=== PATIENT | male | born 1950 | race Caucasian/White ===

== ENCOUNTER 2018-06-24 08:01 | Observation (INO) ==
[2018-06-24] MEDS ORDERED: Sod Chloride 0.9% Inj 1,000 ML IV.SIG ONE (08:34)
--- NOTE | 2018-06-24 08:40 | ED ---
HPI General Chief complaint: Dizziness Stated complaint: Lower heart rate/dizzy/high BP this am Time Seen by Provider: 06/24/18 08:27 Source: patient Mode of arrival: ambulatory Limitations: no limitations History of Present Illness HPI narrative: 68yo M with PMH of HTN, DM presents to the ED with c/o dizziness and diaphoresis this morning. Said he feels lightheaded and is worst when he gets up. Also noticed low heart rate. Last took amlodipine yesterday morning. Denies any fever, cough, chest pain, sob, n/v, abdominal pain, focal weakness or numbness. Related Data Home Medications Medication Instructions Recorded Confirmed amlodipine 10 mg PO QDRHS 06/24/18 06/24/18 levothyroxine 75 mcg PO QDRHS 06/24/18 06/24/18 metformin 500 mg PO QDRHS 06/24/18 06/24/18 Allergies Allergy/AdvReac Type Severity Reaction Status Date / Time No Known Allergies Allergy Unverified 06/24/18 08:20 Review of Systems ROS: all other systems reviewed are negative [facility] Medical History Medical History Diabetes (Acute) Hypertension (Acute) Hypothyroid (Acute) Social History Social History Substance History: No History of Abuse Second Hand Smoke Exposure: No Smoking Status: Former smoker How Often Do You Have a Drink Containing Alcohol: Never Recent Travel in [facility] within the Last 8 Weeks: No Recent Out of Country Travel within the Last 8 Weeks: No Exam Narrative Exam Narrative: GENERAL: 68yo M in mild distress. SKIN: Focused skin assessment warm/dry. HEAD: Atraumatic. Normocephalic. EYES: Pupils equal and round at 4mm bilaterally. EOMI. ENT: No nasal bleeding or discharge. Mucous membranes pink and moist. NECK: Trachea midline. No JVD. CARDIOVASCULAR: Bradycardic in low 40s. No murmur appreciated. RESPIRATORY: No accessory muscle use. Clear to auscultation. Breath sounds equal bilaterally. GASTROINTESTINAL: Abdomen soft, non-tender, nondistended. MUSCULOSKELETAL: No obvious deformities. No clubbing. No cyanosis. Trace bilateral lower extremity edema. NEUROLOGICAL: Awake and alert. No obvious cranial nerve deficits. Motor grossly within normal limits in all extremities. Sensation equal. Normal speech. PSYCHIATRIC: Appropriate mood and affect; insight and judgment normal. Course Initial Documented Vital Signs Temperature 97.4 F L 06/24/18 08:13 Pulse Rate 42 L 06/24/18 08:13 Respiratory Rate 16 06/24/18 08:13 Blood Pressure 130/66 06/24/18 08:13 Pulse Oximetry 96 06/24/18 08:13 Last Documented Vital Signs Temperature 97.4 F L 06/24/18 08:13 Pulse Rate 44 L 06/24/18 11:23 Respiratory Rate 16 06/24/18 11:23 Blood Pressure 119/66 06/24/18 11:23 Pulse Oximetry 95 06/24/18 11:23 Medical Decision Making MDM Narrative Medical decision making narrative: 68yo M with dizziness and bradycardia this morning. Pt's heart rate is usually in the 50s but today is in the low 40s. EKG shows sinus bradycardia. Labs reviewed, no leukocytosis. H/H normal. Troponin negative. BUN elevated at 24. BUN to creatinine ratio is 2 to 1. US showed no leukocyte. Pt given NS IVF. Pt reevaluated at bedside and is still dizzy when he gets up. Given his bradycardia and dizziness, will observe overnight on telemetry. Discussed with Dr. Duque and accepted to his service. Differential Diagnosis Differential Diagnosis: Symptomatic bradycardia vs. hypoglycemia vs. dehydration vs. ACS vs. arrhythmia Lab Data Result diagrams: 06/24/18 08:49 06/24/18 08:49 Lab Results 06/24/18 06/24/18 06/24/18 Range/Units 08:49 08:49 08:56 CBC w Diff Auto diff final WBC 4.9 (4.0-11.0) th/mm3 RBC 4.61 (4.50-5.90) mil/mm3 Hgb 14.1 (13.0-17.0) gm/dL Hct 42.5 (39.0-51.0) % MCV 92.2 (80.0-100.0) fL MCH 30.6 (27.0-34.0) pg MCHC 33.3 (32.0-36.0) % RDW 13.3 (11.6-17.2) % Plt Count 260 (150-450) th/mm3 MPV 7.0 (7.0-11.0) fL Neut % (Auto) 71.5 H (16.0-70.0) % Lymph % (Auto) 17.6 (9.0-44.0) % [place] % (Auto) 8.1 H (0.0-8.0) % Eos % (Auto) 2.2 (0.0-4.0) % Baso % (Auto) 0.6 (0.0-2.0) % Neut # (Auto) 3.5 (1.8-7.7) th/mm3 Lymph # (Auto) 0.9 L (1.0-4.8) th/mm3 [place] # (Auto) 0.4 (0.0-0.9) th/mm3 Eos # (Auto) 0.1 (0.0-0.4) th/mm3 Baso # (Auto) 0.0 (0.0-0.2) th/mm3 WBC Differential . Differential Comment . Sodium 140 (136-145) meq/L Potassium 3.6 (3.5-5.1) meq/L Chloride 108 H (98-107) meq/L Carbon Dioxide 26.9 (21.0-32.0) meq/L Anion Gap 5 (5-15) meq/L BUN 24 H (7-18) mg/dL Creatinine 0.86 (0.60-1.30) mg/dL Estimated GFR 89 (>89) mL/min POC Glucose 120 H (68-110) mg/dl Random Glucose 126 H (74-106) mg/dL Calcium 8.5 (8.5-10.1) mg/dL Troponin I Less than 0.02 L (0.02-0.05) ng/mL Urine Color (Yellw/Straw) Urine Clarity (Clear) Urine pH (5.0-8.5) Ur Specific [place] (1.002-1.035) Urine Protein (Neg-Trace) mg/dL Urine Glucose (UA) (Negative) mg/dL Urine Ketones (Negative) mg/dL Urine Occult Blood (Negative) Urine Nitrate (Negative) Urine Bilirubin (Negative) Urine Urobilinogen (Less than 2) mg/dL Ur Leukocyte Esterase (Negative) Urine WBC (0-5) /hpf Urine Mucus (Occasional) /lpf Micro UA Comment Urine Culture Comments 06/24/18 Range/Units 10:46 CBC w Diff WBC (4.0-11.0) th/mm3 RBC (4.50-5.90) mil/mm3 Hgb (13.0-17.0) gm/dL Hct (39.0-51.0) % MCV (80.0-100.0) fL MCH (27.0-34.0) pg MCHC (32.0-36.0) % RDW (11.6-17.2) % Plt Count (150-450) th/mm3 MPV (7.0-11.0) fL Neut % (Auto) (16.0-70.0) % Lymph % (Auto) (9.0-44.0) % [place] % (Auto) (0.0-8.0) % Eos % (Auto) (0.0-4.0) % Baso % (Auto) (0.0-2.0) % Neut # (Auto) (1.8-7.7) th/mm3 Lymph # (Auto) (1.0-4.8) th/mm3 [place] # (Auto) (0.0-0.9) th/mm3 Eos # (Auto) (0.0-0.4) th/mm3 Baso # (Auto) (0.0-0.2) th/mm3 WBC Differential Differential Comment Sodium (136-145) meq/L Potassium (3.5-5.1) meq/L Chloride (98-107) meq/L Carbon Dioxide (21.0-32.0) meq/L Anion Gap (5-15) meq/L BUN (7-18) mg/dL Creatinine (0.60-1.30) mg/dL Estimated GFR (>89) mL/min POC Glucose (68-110) mg/dl Random Glucose (74-106) mg/dL Calcium (8.5-10.1) mg/dL Troponin I (0.02-0.05) ng/mL Urine Color Yellow (Yellw/Straw) Urine Clarity Clear (Clear) Urine pH 5.5 (5.0-8.5) Ur Specific [place] Greater/equal 1.030 (1.002-1.035) Urine Protein Trace (Neg-Trace) mg/dL Urine Glucose (UA) Negative (Negative) mg/dL Urine Ketones Trace (Negative) mg/dL Urine Occult Blood Negative (Negative) Urine Nitrate Negative (Negative) Urine Bilirubin Negative (Negative) Urine Urobilinogen 1.0 (Less than 2) mg/dL Ur Leukocyte Esterase Negative (Negative) Urine WBC 0-5 (0-5) /hpf Urine Mucus Moderate H (Occasional) /lpf Micro UA Comment Culture not ind Urine Culture Comments Culture not ind ECG Data EKG Prior to Arrival: No Attestation: I personally reviewed and interpreted this ECG as follows: Interpretation: Sinus bradycardia at 40bpm. LAD. [place] 170ms. Mild ST depression I, aVL. Discharge Plan Discharge Disposition Patient Disposition: 30 Still Patient Discharge Details Diagnosis: Dehydration, Bradycardia Physicians Team ED Provider: Gayatri Wright Primary Care Provider: Rocky Carpenter Rxs /Orders / Referrals /Forms Prescriptions: No Action amlodipine 10 mg PO QDRHS RF: 0 levothyroxine 75 mcg PO QDRHS RF: 0 metformin 500 mg PO QDRHS RF: 0 Discharge Interventions Interventions: Vital Signs Last Done: 06/24/18 11:23 Status ED Status: With Doctor
[2018-06-24 08:56] LABS: Baso % (Auto) 0.6 % (0.0-2.0); Eos # (Auto) 0.1 th/mm3 (0.0-0.4); Eos % (Auto) 2.2 % (0.0-4.0); Hematocrit 42.5 % (39.0-51.0); Hemoglobin 14.1 gm/dL (13.0-17.0); Lymph # (Auto) 0.9 th/mm3 (1.0-4.8); Lymph % (Auto) 17.6 % (9.0-44.0); Mean Corpuscular HGB Conc 33.3 % (32.0-36.0); Mean Corpuscular Hemoglobin 30.6 pg (27.0-34.0); Mean Corpuscular Volume 92.2 fL (80.0-100.0); Mono # (Auto) 0.4 th/mm3 (0.0-0.9); Mono % (Auto) 8.1 % (0.0-8.0); Neut # (Auto) 3.5 th/mm3 (1.8-7.7); Neut % (Auto) 71.5 % (16.0-70.0); Platelet Count 260 th/mm3 (150-450); Red Blood Count 4.61 mil/mm3 (4.50-5.90); Red Cell Distribution Width 13.3 % (11.6-17.2); White Blood Count 4.9 th/mm3 (4.0-11.0)
[2018-06-24 09:06] LABS: Chloride 108 meq/L (98-107); Potassium 3.6 meq/L (3.5-5.1); Sodium 140 meq/L (136-145)
[2018-06-24 09:08] LABS: Calcium 8.5 mg/dL (8.5-10.1)
[2018-06-24 09:09] LABS: Anion Gap 5 meq/L (5-15); Blood Urea Nitrogen 24 mg/dL (7-18); Carbon Dioxide 26.9 meq/L (21.0-32.0); Glucose,Random 126 mg/dL (74-106)
[2018-06-24 09:12] LABS: Glomerular Filtration Rate 89 mL/min (>89)
[2018-06-24 10:49] LABS: Bilirubin,Urine Negative (Negative); Clarity,Urine Clear (Clear); Color,Urine Yellow (Yellw/Straw); Glucose,Urine (UA) Negative (Negative); Leukocyte Esterase,Urine Negative (Negative); Nitrite,Urine Negative (Negative); PH,Urine 5.5 (5.0-8.5); Specific Gravity,Urine Greater/Equal 1.030 (1.002-1.035)
[2018-06-24 10:58] LABS: WBC,Urine 0-5 /hpf (0-5)
[2018-06-24 10:59] LABS: Mucus,Urine Moderate /lpf (Occasional)
[2018-06-24] MEDS ORDERED: Acetaminophen 325 MG Tablet PO PRN (12:45)
[2018-06-24] MEDS: Levothyroxine 75 MCG Tablet PO SCH (13:49)
[2018-06-24] MEDS: amLODIPine 10 MG Tablet PO SCH (13:49)
[2018-06-24] MEDS: Enoxaparin Inj 40 MG/0.4 ML Syringe SQ SCH (13:50)
--- NOTE | 2018-06-24 17:14 | P.HP ---
History of Present Illness Service: [facility] hospitalist Primary Care Physician: Rocky Carpenter Chief Complaint: dizziness with low pulse History of Present Illness: 68-year-old white male with a history of hypertension on amlodipine diabetes on metformin who came to the emergency room today with complaints of dizziness and on a monitor was found to have a low pulse rate and was concerned it was less than 50. Patient states that approximately 1 year ago while at work had a syncopal episode off a ladder, and was admitted to the hospital had full workup including monitor strips and had a event monitor which was unremarkable. Patient also states that last he had dizzy spells associated with some vertigo lasted about a half a day and dissipated on its own. Today patient woke up with dizziness lightheadedness and does have a blood pressure monitor blood pressure monitor read 40 to his baseline heart rate is approximately 55 according to the patient 42 he became concerned and came to [facility] emergency room. In the emergency room his heart rate was in the 50 range will be admitted now for further evaluation telemetry monitoring and consult cardiology patient denies shortness of breath chest pain nausea vomiting when he had the dizzy spell he was off balance balance is now normal. - Diagnosis (1) Dizziness (2) Bradycardia (3) Diabetes (4) Hypertension Review of Systems All other systems reviewed negative except as stated in HPI [facility] - History History Provided By: Patient - Medical History Medical History: Medical History (Last Updated 06/24/18 @ 08:53 by Gabrielle Raza RN) Diabetes Hypertension Hypothyroid - Tobacco History Second Hand Smoke Exposure: No Tobacco Use In Past 30 Days: No Smoking Status: Former smoker Tobacco Type: Cigarettes - Alcohol History How Often Do You Have a Drink Containing Alcohol: Never - Substance Use History Substance History: No History of Abuse - Travel History Recent Travel in the [place] Within the Last 8 Weeks: No Recent Travel Out of the Country Within the Last 8 Weeks: No - Immunization History Tetanus Immunization: Unsure Hx Influenza Vaccine This Season: No Medications and Allergies Active Medications: Active Medications Acetaminophen (Tylenol) 650 mg PO Q4H PRN PRN Reason: Temp > 100.4 Al Hydroxide/Mg Hydroxide (Milk Of Magnesia Liq) 30 ml PO Q12H PRN PRN Reason: Mild Constipation Amlodipine Besylate (Norvasc) 10 mg PO DAILY [facility] Last Admin: 06/24/18 13:49 Dose: 10 mg Enoxaparin Sodium (Lovenox Inj) 40 mg SQ Q24H [facility] Last Admin: 06/24/18 13:50 Dose: 40 mg Levothyroxine Sodium (Synthroid) 75 mcg PO DAILY@0600 [facility] Last Admin: 06/24/18 13:49 Dose: 75 mcg Meclizine HCl (Antivert) 25 mg PO Q8HR [facility] Last Admin: 06/24/18 15:40 Dose: 25 mg Sodium Chloride (Ns Flush) 2 ml IV.FLUSH PRN PRN PRN Reason: FLUSH AFTER USING IV ACCESS Allergies Allergy/AdvReac Type Severity Reaction Status Date / Time No Known Allergies Allergy Unverified 06/24/18 08:20 Home Medications Medication Instructions Recorded Confirmed Type amlodipine 10 mg PO QDRHS 06/24/18 06/24/18 History levothyroxine 75 mcg PO QDRHS 06/24/18 06/24/18 History metformin 500 mg PO QDRHS 06/24/18 06/24/18 History Exam Vital signs: Vital Signs 06/24/18 08:13 06/24/18 08:59 06/24/18 09:00 Temperature 97.4 F L Pulse Rate 42 L 42 L 42 L Respiratory Rate 16 16 Blood Pressure 130/66 115/64 Pulse Oximetry 96 97 06/24/18 09:51 06/24/18 10:43 06/24/18 11:23 Temperature Pulse Rate 43 L 43 L 44 L Respiratory Rate 16 16 16 Blood Pressure 113/74 115/65 119/66 Pulse Oximetry 97 97 95 06/24/18 13:35 06/24/18 14:59 Temperature 96.8 F L 97.2 F L Pulse Rate 43 L 48 L Respiratory Rate 20 20 Blood Pressure 133/81 135/76 Pulse Oximetry 96 96 Intake & Output 06/23/18 06/24/18 06/24/18 18:59 06:59 18:59 Intake Total 1720 / 1720 Balance 1720 / 1720 Weight 92.9 kg Intake: IV 1000 / 1000 Oral 720 / 720 Other: # Voids 2 Date of Last Bowel Movement 06/23/18 Weight On Admission 92.9 kg Narrative: GENERAL: SKIN: Warm and dry. HEAD: Atraumatic. Normocephalic. EYES: Pupils equal and round. No scleral icterus. No injection or drainage. ENT: No nasal bleeding or discharge. Mucous membranes pink and moist. NECK: Trachea midline. No JVD. CARDIOVASCULAR: Regular rate and rhythm. 2/6 systolic murmur RESPIRATORY: No accessory muscle use. Clear to auscultation. Breath sounds equal bilaterally. GASTROINTESTINAL: Abdomen soft, non-tender, nondistended. Hepatic and splenic margins not palpable. MUSCULOSKELETAL: Extremities without clubbing, cyanosis, or edema. No obvious deformities. NEUROLOGICAL: Awake and alert. No obvious cranial nerve deficits. Motor grossly within normal limits. Five out of 5 muscle strength in the arms and legs. Normal speech. PSYCHIATRIC: Appropriate mood and affect; insight and judgment normal. Results - Labs CBC & Chem 7: 06/24/18 08:49 06/24/18 08:49 Labs: Laboratory Results - last 24 hr 06/24/18 06/24/18 06/24/18 08:49 08:49 08:56 CBC w Diff Auto diff final WBC 4.9 RBC 4.61 Hgb 14.1 Hct 42.5 MCV 92.2 MCH 30.6 MCHC 33.3 RDW 13.3 Plt Count 260 MPV 7.0 Neut % (Auto) 71.5 H Lymph % (Auto) 17.6 [place] % (Auto) 8.1 H Eos % (Auto) 2.2 Baso % (Auto) 0.6 Neut # (Auto) 3.5 Lymph # (Auto) 0.9 L [place] # (Auto) 0.4 Eos # (Auto) 0.1 Baso # (Auto) 0.0 WBC Differential . Differential Comment . Sodium 140 Potassium 3.6 Chloride 108 H Carbon Dioxide 26.9 Anion Gap 5 BUN 24 H Creatinine 0.86 Estimated GFR 89 POC Glucose 120 H Random Glucose 126 H Calcium 8.5 Troponin I Less than 0.02 L Urine Color Urine Clarity Urine pH Ur Specific [place] Urine Protein Urine Glucose (UA) Urine Ketones Urine Occult Blood Urine Nitrate Urine Bilirubin Urine Urobilinogen Ur Leukocyte Esterase Urine WBC Urine Mucus Micro UA Comment Urine Culture Comments 06/24/18 10:46 CBC w Diff WBC RBC Hgb Hct MCV MCH MCHC RDW Plt Count MPV Neut % (Auto) Lymph % (Auto) [place] % (Auto) Eos % (Auto) Baso % (Auto) Neut # (Auto) Lymph # (Auto) [place] # (Auto) Eos # (Auto) Baso # (Auto) WBC Differential Differential Comment Sodium Potassium Chloride Carbon Dioxide Anion Gap BUN Creatinine Estimated GFR POC Glucose Random Glucose Calcium Troponin I Urine Color Yellow Urine Clarity Clear Urine pH 5.5 Ur Specific [place] Greater/equal 1.030 Urine Protein Trace Urine Glucose (UA) Negative Urine Ketones Trace Urine Occult Blood Negative Urine Nitrate Negative Urine Bilirubin Negative Urine Urobilinogen 1.0 Ur Leukocyte Esterase Negative Urine WBC 0-5 Urine Mucus Moderate H Micro UA Comment Culture not ind Urine Culture Comments Culture not ind Caprini VTE Risk Assessment Caprini VTE Risk Assessment: No/Low Risk (score <= 1) Caprini Risk Assessment Model: Point Value = 1 Point Value = 2 Point Value = 3 Point Value = 5 Age 41-60 Minor surgery BMI > 25 kg/m2 Swollen legs Varicose veins or History of unexplained or recurrent spontaneous Oral contraceptives or hormone replacement Sepsis (< 1 month) Serious lung disease, including pneumonia (< 1 month) Abnormal pulmonary function Acute myocardial infarction Congestive heart failure (< 1 month) History of inflammatory bowel disease Medical patient at bed rest Age 61-74 Arthroscopic surgery Major open surgery (> 45 min) Laparoscopic surgery (> 45 min) Malignancy Confined to bed (> 72 hours) Immobilizing plaster cast Central venous access Age >= 75 History of VTE Family history of VTE Factor V Leiden Prothrombin [id number] Lupus anticoagulant Anticardiolipin antibodies Elevated serum homocysteine Heparin-induced thrombocytopenia Other congenital or acquired thrombophilia Stroke (< 1 month) Elective arthroplasty Hip, pelvis, or leg fracture Acute spinal cord injury (< 1 month) Prophylaxis Regimen: Total Risk Factor Score Risk Level Prophylaxis Regimen 0-1 Low Early ambulation 2 Moderate Order ONE of the following: *Sequential Compression Device (SCD) *Heparin 5000 units SQ BID 3-4 Higher Order ONE of the following medications: *Heparin 5000 units SQ TID *Enoxaparin/Lovenox 40 mg SQ daily (WT < 150 kg, CrCl > 30 mL/min) *Enoxaparin/Lovenox 30 mg SQ daily (WT < 150 kg, CrCl > 10-29 mL/min) *Enoxaparin/Lovenox 30 mg SQ BID (WT < 150 kg, CrCl > 30 mL/min) AND/OR *Sequential Compression Device (SCD) 5 or more Highest Order ONE of the following medications: *Heparin 5000 units SQ TID (Preferred with Epidurals) *Enoxaparin/Lovenox 40 mg SQ daily (WT < 150 kg, CrCl > 30 mL/min) *Enoxaparin/Lovenox 30 mg SQ daily (WT < 150 kg, CrCl > 10-29 mL/min) *Enoxaparin/Lovenox 30 mg SQ BID (WT < 150 kg, CrCl > 30 mL/min) AND *Sequential Compression Device (SCD) Assessment and Plan - Assessment (1) Dizziness Code(s): R42 - Dizziness and giddiness Status: Acute Plan: Patient is asymptomatic while lying in bed his heart rate on monitor continues to be in the 40s cardiology has been consulted (2) Bradycardia Code(s): R00.1 - Bradycardia, unspecified Status: Acute Plan: Bradycardia based on rhythm strips (3) Diabetes Code(s): E11.9 - Type 2 diabetes mellitus without complications Status: Acute (4) Hypertension Code(s): I10 - Essential (primary) hypertension Status: Acute Plan: Blood pressure has been stable on amlodipine we will continue for now - Plan Further plan pending cardiac evaluation of note it was a possible heart murmur that I detected patient is unaware of having a history of heart murmur we will get a 2D echo for evaluation Code Status: Full Discussed Condition With: Case discussed with patient
--- NOTE | 2018-06-24 18:48 | ECG ---
Date Performed: 06/24/2018 Time Performed: 08:34:38 PTAGE: 68 years EKG: SINUS BRADYCARDIA BORDERLINE LEFT AXIS DEVIATION NONSPECIFIC T-WAVE ABNORMALITY BORDERLINE ECG INTERPRETATION BASED ON A DEFAULT AGE OF 89 YEARS NO PREVIOUS TRACING DOCTOR: John Flynn Interpretating Date/Time 06/24/2018 18:47:25
[2018-06-25] MEDS: Levothyroxine 75 MCG Tablet PO SCH (06:24)
--- NOTE | 2018-06-25 07:22 | P.CONCA ---
History of Present Illness Service: [facility] cardiology Consult date: 06/25/18 Requesting Physician: Steve Cesar Reason for Consult: bradycardia Primary Care Provider: Rocky Carpenter Chief Complaint: dizziness with low pulse History of Present Illness: 68 yo gentleman with HTN, NIDDM admitted 06/24 with dizziness and lightheadedness and found to have sinus bradycardia HR 40s-50s. Patient reports long hx of "slow HR" in 50s. Has been having intermittent dizziness lately. Last stayed home from work with dizziness upon awakening. Mostly when moving position and once felt vertigo symptoms. Sometimes when moving head side to side feels "brain is swooshing" and unwell. [place] well over weekend then yesterday had symptoms again and checked vitals and noted HR 42bpm. Otherwise feels well with no complaints. tele with SB HR 42-60 mostly 40s while awake. ECG nonischemic, labs unremarkable. Review of Systems All other systems reviewed negative except as stated in HPI [facility] - History History Provided By: Patient - Medical History Medical History: Medical History (Last Updated 06/24/18 @ 08:53 by Gabrielle Raza RN) Diabetes Hypertension Hypothyroid - Tobacco History Second Hand Smoke Exposure: No Tobacco Use In Past 30 Days: No Smoking Status: Former smoker Tobacco Type: Cigarettes - Alcohol History How Often Do You Have a Drink Containing Alcohol: Never - Substance Use History Substance History: No History of Abuse - Travel History Recent Travel in the [place] Within the Last 8 Weeks: No Recent Travel Out of the Country Within the Last 8 Weeks: No - Immunization History Tetanus Immunization: Unsure Hx Influenza Vaccine This Season: No Medications and Allergies Active Medications: Active Medications Acetaminophen (Tylenol) 650 mg PO Q4H PRN PRN Reason: Temp > 100.4 Al Hydroxide/Mg Hydroxide (Milk Of Magnesia Liq) 30 ml PO Q12H PRN PRN Reason: Mild Constipation Amlodipine Besylate (Norvasc) 10 mg PO DAILY [facility] Last Admin: 06/24/18 13:49 Dose: 10 mg Enoxaparin Sodium (Lovenox Inj) 40 mg SQ Q24H [facility] Last Admin: 06/24/18 13:50 Dose: 40 mg Levothyroxine Sodium (Synthroid) 75 mcg PO DAILY@0600 [facility] Last Admin: 06/25/18 06:24 Dose: 75 mcg Meclizine HCl (Antivert) 25 mg PO Q8HR [facility] Last Admin: 06/25/18 06:24 Dose: 25 mg Metformin HCl (Glucophage) 500 mg PO DAILY [facility] Last Admin: 06/24/18 17:30 Dose: 500 mg Sodium Chloride (Ns Flush) 2 ml IV.FLUSH PRN PRN PRN Reason: FLUSH AFTER USING IV ACCESS Allergies Allergy/AdvReac Type Severity Reaction Status Date / Time No Known Allergies Allergy Unverified 06/24/18 08:20 Home Medications Medication Instructions Recorded Confirmed Type amlodipine 10 mg PO QDS 06/24/18 06/24/18 History levothyroxine 75 mcg PO QDS 06/24/18 06/24/18 History metformin 500 mg PO QDS 06/24/18 06/24/18 History Exam Vital signs: Vital Signs 06/24/18 08:13 06/24/18 08:59 06/24/18 09:00 Temperature 97.4 F L Pulse Rate 42 L 42 L 42 L Respiratory Rate 16 16 Blood Pressure 130/66 115/64 Pulse Oximetry 96 97 06/24/18 09:51 06/24/18 10:43 06/24/18 11:23 Temperature Pulse Rate 43 L 43 L 44 L Respiratory Rate 16 16 16 Blood Pressure 113/74 115/65 119/66 Pulse Oximetry 97 97 95 06/24/18 13:35 06/24/18 14:59 06/24/18 20:00 Temperature 96.8 F L 97.2 F L 96.1 F L Pulse Rate 43 L 48 L 46 L Respiratory Rate 20 20 20 Blood Pressure 133/81 135/76 118/66 Pulse Oximetry 96 96 95 06/25/18 00:00 06/25/18 04:00 Temperature 97.2 F L 96.6 F L Pulse Rate 53 L 51 L Respiratory Rate 20 20 Blood Pressure 135/71 125/68 Pulse Oximetry 94 L 96 Intake & Output 06/24/18 06/25/18 06/25/18 18:59 06:59 18:59 Intake Total 2320 / 2320 480 / 480 Output Total 600 / 600 Balance 1720 / 1720 480 / 480 Weight 92.9 kg 92.7 kg Intake: IV 1000 / 1000 Oral 1320 / 1320 480 / 480 Output: Urine 600 / 600 Other: # Voids 2 3 Date of Last Bowel Movement 06/23/18 Weight On Admission 92.9 kg Narrative: GENERAL: comfortable and NAD SKIN: Warm and dry. HEAD: Atraumatic. Normocephalic. EYES: Pupils equal and round. No scleral icterus. No injection or drainage. ENT: No nasal bleeding or discharge. Mucous membranes pink and moist. NECK: Trachea midline. No JVD. CARDIOVASCULAR: Regular rate and rhythm. RESPIRATORY: No accessory muscle use. Clear to auscultation. Breath sounds equal bilaterally. GASTROINTESTINAL: Abdomen soft, non-tender, nondistended. MUSCULOSKELETAL: Extremities without clubbing, cyanosis, or edema. No obvious deformities. NEUROLOGICAL: Awake and alert. No obvious cranial nerve deficits. Normal speech. PSYCHIATRIC: Appropriate mood and affect; insight and judgment normal. Results 06/24/18 08:49 06/24/18 08:49 Cardiac Enzymes 06/24/18 Range/Units 08:49 Troponin I Less than 0.02 L (0.02-0.05) ng/mL CBC 06/24/18 Range/Units 08:49 WBC 4.9 (4.0-11.0) th/mm3 RBC 4.61 (4.50-5.90) mil/mm3 Hgb 14.1 (13.0-17.0) gm/dL Hct 42.5 (39.0-51.0) % Plt Count 260 (150-450) th/mm3 Neut # (Auto) 3.5 (1.8-7.7) th/mm3 Lymph # (Auto) 0.9 L (1.0-4.8) th/mm3 [place] # (Auto) 0.4 (0.0-0.9) th/mm3 Eos # (Auto) 0.1 (0.0-0.4) th/mm3 Baso # (Auto) 0.0 (0.0-0.2) th/mm3 Comprehensive Metabolic Panel 06/24/18 Range/Units 08:49 Sodium 140 (136-145) meq/L Potassium 3.6 (3.5-5.1) meq/L Chloride 108 H (98-107) meq/L Carbon Dioxide 26.9 (21.0-32.0) meq/L BUN 24 H (7-18) mg/dL Creatinine 0.86 (0.60-1.30) mg/dL Calcium 8.5 (8.5-10.1) mg/dL Intake and Output 06/24/18 06/25/18 06/25/18 22:59 06:59 14:59 Intake Total 1320 / 1320 480 / 480 Output Total 600 / 600 Balance 720 / 720 480 / 480 Intake: Oral 1320 / 1320 480 / 480 Output: Urine 600 / 600 Other: # Voids 2 3 Weight 92.7 kg Assessment and Plan - Plan SSS with symptomatic sinus bradycardia HTN NIDDM Rec: transfer to [facility] for PPM tomorrow. Patient agrees with plan. MCKENZIEO lilibeth ALANIZ.
[2018-06-25] MEDS: amLODIPine 10 MG Tablet PO SCH (08:07)
--- NOTE | 2018-06-25 10:34 | P.PN ---
Subjective Interval history: Appreciate cardiology note patient with symptomatic bradycardia ,SSS to be transferred [facility] pacemaker Physical Exam Vital signs: Vital Signs 06/24/18 10:43 06/24/18 11:23 06/24/18 13:35 Temperature 96.8 F L Pulse Rate 43 L 44 L 43 L Respiratory Rate 16 16 20 Blood Pressure 115/65 119/66 133/81 Pulse Oximetry 97 95 96 06/24/18 14:59 06/24/18 20:00 06/25/18 00:00 Temperature 97.2 F L 96.1 F L 97.2 F L Pulse Rate 48 L 46 L 53 L Respiratory Rate 20 20 20 Blood Pressure 135/76 118/66 135/71 Pulse Oximetry 96 95 94 L 06/25/18 04:00 06/25/18 08:00 06/25/18 09:00 Temperature 96.6 F L 96.1 F L Pulse Rate 51 L 50 L 53 L Respiratory Rate 20 20 Blood Pressure 125/68 134/70 Pulse Oximetry 96 96 Intake & Output 06/24/18 06/25/18 06/25/18 18:59 06:59 18:59 Intake Total 2320 / 2320 480 / 480 Output Total 600 / 600 Balance 1720 / 1720 480 / 480 Weight 92.9 kg 92.7 kg Intake: IV 1000 / 1000 Oral 1320 / 1320 480 / 480 Output: Urine 600 / 600 Other: # Voids 2 3 Date of Last Bowel Movement 06/23/18 06/25/18 Weight On Admission 92.9 kg Narrative: GENERAL: SKIN: Warm and dry. HEAD: Normocephalic. EYES: No scleral icterus. No injection or drainage. NECK: Supple, trachea midline. No JVD or lymphadenopathy. CARDIOVASCULAR: Regular rate and rhythm with 1-2/6murmur, gallops, or rubs. RESPIRATORY: Breath sounds equal bilaterally. No accessory muscle use. GASTROINTESTINAL: Abdomen soft, non-tender, nondistended. MUSCULOSKELETAL: No cyanosis, or edema. BACK: Nontender without obvious deformity. No CVA tenderness. Results - Labs CBC & Chem 7: 06/24/18 08:49 06/24/18 08:49 Laboratory Results - last 24 hr 06/24/18 10:46 Urine Color Yellow Urine Clarity Clear Urine pH 5.5 Ur Specific [place] Greater/equal 1.030 Urine Protein Trace Urine Glucose (UA) Negative Urine Ketones Trace Urine Occult Blood Negative Urine Nitrate Negative Urine Bilirubin Negative Urine Urobilinogen 1.0 Ur Leukocyte Esterase Negative Urine WBC 0-5 Urine Mucus Moderate H Micro UA Comment Culture not ind Urine Culture Comments Culture not ind Assessment and Plan - Assessment (1) Dizziness Code(s): R42 - Dizziness and giddiness Status: Acute Plan: Patient is asymptomatic while lying in bed his heart rate on monitor continues to be in the 40s cardiology wants pacemaker to be transferred (2) Bradycardia Code(s): R00.1 - Bradycardia, unspecified Status: Acute Plan: Bradycardia based on rhythm strips (3) Diabetes Code(s): E11.9 - Type 2 diabetes mellitus without complications Status: Acute (4) Hypertension Code(s): I10 - Essential (primary) hypertension Status: Acute Plan: Blood pressure has been stable on amlodipine we will continue for now - Plan Further plan pending cardiac evaluation of note it was a possible heart murmur that I detected patient is unaware of having a history of heart murmur we will get a 2D echo for evaluation
[2018-06-25] MEDS: Enoxaparin Inj 40 MG/0.4 ML Syringe SQ SCH (13:43)
--- NOTE | 2018-06-25 18:26 | ECHRPT ---
Indication: HYPERTENSIVE HEART DISEASE CONCLUSIONS Normal left ventricular size. Mild concentric left ventricular hypertrophy. The left ventricular systolic function is normal with an estimated ejection fraction in the range of 60-65%. The left atrial size is mildly dilated. Trace mitral valve regurgitation. Aortic valve sclerosis is present. There is trace tricuspid valve regurgitation. The estimated pulmonary arterial pressure is 28 mmHg. BP: / HR: Rhythm: Sinus MEASUREMENTS (Male / Female) Normal Values Technical Quality:Fair 2D ECHO LV Diastolic Diameter PLAX 5.1 cm 4.2 - 5.9 / 3.9 - 5.3 cm LV Systolic Diameter PLAX 3.5 cm IVS Diastolic Thickness 1.1 cm 0.6 - 1.0 / 0.6 - 0.9 cm LVPW Diastolic Thickness 1.1 cm 0.6 - 1.0 / 0.6 - 0.9 cm LV Relative Wall Thickness 0.4 RV Internal Dim ED PLAX 2.5 cm LVOT Diameter 2.6 cm Aortic Root Diameter 3.7 cm LA Systolic Diameter LX 4.2 cm 3.0 - 4.0 / 2.7 - 3.8 cm M-MODE AV Cusp Separation MM 2.3 cm DOPPLER AV Peak Velocity 97.9 cm/s AV Peak Gradient 3.8 mmHg AV Mean Gradient 2.0 mmHg AV Velocity Time Integral 21.1 cm LVOT Peak Velocity 90.2 cm/s LVOT Peak Gradient 3.3 mmHg LVOT Velocity Time Integral 20.1 cm AV Area Cont Eq vti 5.1 cm AV Area Cont Eq pk 4.9 cm Mitral E Point Velocity 78.5 cm/s Mitral A Point Velocity 81.9 cm/s Mitral E to A Ratio 1.0 LV E' Lateral Velocity 11.1 cm/s Mitral E to LV E' Lateral Ratio 7.1 LV E' Septal Velocity 8.3 cm/s Mitral E to LV E' Septal Ratio 9.5 TR Peak Velocity 210.0 cm/s TR Peak Gradient 17.6 mmHg PV Peak Velocity 79.7 cm/s PV Peak Gradient 2.5 mmHg FINDINGS LEFT VENTRICLE Normal left ventricular size. Mild concentric left ventricular hypertrophy. The left ventricular systolic function is normal with an estimated ejection fraction in the range of 60-65%. RIGHT VENTRICLE Normal right ventricular size and systolic function. LEFT ATRIUM The left atrial size is mildly dilated. RIGHT ATRIUM The right atrial size is normal. ATRIAL SEPTUM No atrial level shunt is demonstrated by color flow Doppler interrogation. AORTA The aortic root and proximal ascending aorta are normal in size on limited imaging. MITRAL VALVE Trace mitral valve regurgitation. AORTIC VALVE Aortic valve sclerosis is present. TRICUSPID VALVE There is trace tricuspid valve regurgitation. The estimated pulmonary arterial pressure is 28 mmHg. PULMONARY VALVE No pulmonary valve regurgitation or stenosis. VESSELS The inferior vena cava is normal in size. PERICARDIUM No pericardial effusion. Willa Parsons MD, FACC (Electronically Signed) Final Date:25 June 2018 18:25
[2018-06-26] MEDS: Levothyroxine 75 MCG Tablet PO SCH (05:48)
[2018-06-26] MEDS ORDERED: Bupivacaine PF 0.5% Inj 10 ML Vial ONE (07:02)
--- NOTE | 2018-06-26 08:13 | P.PNCA ---
Subjective Interval history: Still some lightheadedness/dizziness. Telemetry currently with sinus bradycardia, rate 42, rate down to high 30s overnight while asleep. For pacemaker placement later today, all questions answered. Physical Exam Vital signs: Vital Signs 06/25/18 09:00 06/25/18 12:00 06/25/18 16:00 Temperature 96.1 F L 96.9 F L Pulse Rate 53 L 50 L 54 L Respiratory Rate 20 20 Blood Pressure 121/63 135/70 Pulse Oximetry 96 96 06/25/18 20:00 06/25/18 20:38 06/25/18 21:00 Temperature 98.4 F Pulse Rate 50 L 53 L 52 L Respiratory Rate 16 Blood Pressure 136/69 Pulse Oximetry 95 06/25/18 22:00 06/25/18 23:00 06/26/18 00:00 Temperature 97.7 F Pulse Rate 48 L 48 L 48 L Respiratory Rate 18 Blood Pressure 123/75 Pulse Oximetry 93 L 06/26/18 01:00 06/26/18 02:00 06/26/18 03:00 Temperature Pulse Rate 42 L 44 L 47 L Respiratory Rate Blood Pressure Pulse Oximetry 06/26/18 04:00 06/26/18 05:00 06/26/18 06:00 Temperature 97.8 F Pulse Rate 50 L 44 L 42 L Respiratory Rate 14 Blood Pressure 119/65 Pulse Oximetry 94 L 06/26/18 07:00 06/26/18 08:00 Temperature 97.4 F L Pulse Rate 52 L 46 L Respiratory Rate 15 Blood Pressure 130/70 Pulse Oximetry 95 Intake & Output 06/25/18 06/26/18 06/26/18 18:59 06:59 18:59 Intake Total 840 / 840 240 / 240 Balance 840 / 840 240 / 240 Intake: Oral 840 / 840 240 / 240 Other: # Voids 5 3 Date of Last Bowel Movement 06/25/18 06/25/18 # Bowel Movements 1 Narrative: GENERAL: Well-developed well-nourished. In no acute distress. NECK: No carotid bruits. No JVD. CARDIOVASCULAR: Bradycardic rate and regular rhythm. No murmur appreciated. RESPIRATORY: No accessory muscle use. Clear to auscultation. Breath sounds equal bilaterally. MUSCULOSKELETAL: No clubbing or cyanosis. No edema. NEUROLOGICAL: Awake and alert. Normal speech. Assessment and Plan - Plan Assessment: SSS with symptomatic sinus bradycardia - echo with normal EF HTN NIDDM Recommendation: N.p.o. for PPM later today. Discussed Condition With: Patient, Dr. Dior
[2018-06-26] MEDS: amLODIPine 10 MG Tablet PO SCH (08:32)
--- NOTE | 2018-06-26 11:22 | P.PNIM ---
Subjective Interval history: No new complaints. Physical Exam Vital signs: 06/26/18 11:00 06/26/18 11:14 Temperature 97.7 F Pulse Rate 49 L 47 L Respiratory Rate 16 Blood Pressure 128/69 Pulse Oximetry 97 Narrative: GENERAL: Well-developed well-nourished. In no acute distress. NECK: No carotid bruits. No JVD. CARDIOVASCULAR: Bradycardic rate and regular rhythm. No murmur appreciated. RESPIRATORY: No accessory muscle use. Clear to auscultation. Breath sounds equal bilaterally. MUSCULOSKELETAL: No clubbing or cyanosis. No edema. NEUROLOGICAL: Awake and alert. Normal speech. Results - Labs CBC & Chem 7: 06/24/18 08:49 06/24/18 08:49 Assessment and Plan - Assessment (1) Bradycardia Code(s): R00.1 - Bradycardia, unspecified Status: Acute Plan: (1) Dizziness Code(s): R42 - Dizziness and giddiness Status: Acute Plan: - hopefully attributable to pt's bradycardia - observe - PT (2) Bradycardia Code(s): R00.1 - Bradycardia, unspecified Status: Acute Plan: Bradycardia based on rhythm strips - Pt to undergo PPM today with Dr. Dior - Echocardiogram (06/25) EF 60-65% (3) Diabetes Code(s): E11.9 - Type 2 diabetes mellitus without complications Status: Acute (4) Hypertension Code(s): I10 - Essential (primary) hypertension Status: Acute Plan: - norvasc (2) Diabetes Code(s): E11.9 - Type 2 diabetes mellitus without complications Status: Acute (3) Hypertension Code(s): I10 - Essential (primary) hypertension Status: Acute
[2018-06-26] MEDS ORDERED: Lidocaine PF 1% Inj 5 ML Syringe INFILTRATN ONE (12:00)
[2018-06-26] MEDS: Enoxaparin Inj 40 MG/0.4 ML Syringe SQ SCH (13:22)
[2018-06-26] MEDS ORDERED: Chlorhexidine Gluconate 2% 1 Pack (2 Cloths) TOPICAL SCH (14:45)
[2018-06-26] MEDS ORDERED: ceFAZolin 2 GM Premix Inj 2 GM/100 ML BAG IV.SIG SCH (15:00)
[2018-06-26] MEDS ORDERED: Vancomycin Inj 1,000 MG in Sodium Chlor 0.9% Inj 250 ML IV.SIG SCH (15:00)
[2018-06-26] MEDS ORDERED: fentaNYL Citrate Inj 100 MCG/2 ML Ampul ONE (17:21)
[2018-06-26] MEDS ORDERED: Naloxone Inj 0.4 MG/ML Vial IV.PUSH PRN (17:48)
[2018-06-26] MEDS ORDERED: hydrALAZINE HCl Inj 20 MG/ML Vial IV.PUSH PRN (18:04)
--- NOTE | 2018-06-26 18:09 | CATHPROC ---
Patient Name: Gregg Araujo Study #: [id number] Initial MD: Dandre Dior Date of : 1950 Study Date: 06/26/2018 Cardiac Catheterization Report 06/26/2018 6:08:32 PM Financial #: [id number] 1 of 9 Patient Name: Gregg Araujo Study #: [id number] Initial MD: Dandre Dior Date of : 1950 Study Date: 06/26/2018 Entire Case Report Patient Information Patient Name Gregg Araujo Date of 1950 Age 68 years Financial # [id number] Gender M AlternateID Lab Number 2 Room Number 255 Height (in) 68.0 Height (cm) 172.7 BSA 2.06 Weight (lbs) 203.9 Weight (kg) 92.7 Patient Address/Phone Number Home Address [facility] Home Phone Number [address] [facility] [address] Study Information Study Number Admission Scheduled Start Study Start [id number] Jun 24 2018 12:00PM 06/26/2018 Jun 26 2018 3:28PM [facility] Cardiac Catheterization Admit Source Facility Department Other [facility] - Hand Patcher Physician and Clinical Staff Initial Dandre Turcios Ink Jet Operator Olga Griffin,RT(R) TECH2 Other Anesthesia, CONSTRUCTION JOB TITLES Other Dayami Gary,RN Other Ekaterina Paul,RN Recorder Anushka Brown RN Scrub Lola Lewis RCIS Procedures Performed Procedure Lead Insertion 06/26/2018 6:08:32 PM Financial #: [id number] 2 of 9 Patient Name: Gregg Araujo Study #: [id number] Initial MD: Dandre Dior Date of : 1950 Study Date: 06/26/2018 Equipment Time [employer] Linux Engineer Description Size Mfg Part Number Used/Scraped INTRODUCER SET, [id number] 16:30 [employer] FR 5 Used MICROPUNCTURE *[id number] INTRODUCER SET, [id number] 16:55 [employer] FR 5 Used MICROPUNCTURE *[id number] DERMABOND, ADHESIVE SKIN [facility]12 15:52 CORDIS/PACER * Used GLUE MINI *[id number] 15:52 MEDLINE INDUSTRIES BLANKET,WARM AIR CCL * Used *[id number] 15:52 MEDLINE PACER ADHESIVE, MASTISOL 2/3CC 2/3CC 0523-48 Used 15:52 MEDLINE PACER DUMONT, LIMB * 2530 *[id number] Used [id number] 15:52 MEDLINE PACER PACK, PACER CUSTOM * Used *[id number] 15:52 MEDLINE PACER PEN, SKIN DUAL W/ RULER * Used *[id number] 16:37 TreatFeed MEDICAL PACER SAFE SHEATH, FR7, 13CM FR 7 CLS-1007 Used 16:55 [employer]Feed MEDICAL PACER SAFE SHEATH, FR7, 13CM FR 7 CLS-1007 Used 15:58 Needle Sponge Count 2 22 Used 15:58 Needle Sponge Count 30 1 Used 15:58 Needle Sponge Count 6 6 Used [id number] *[id number] SUTURE, 0 ETHIBOND [CT1] (CX21D), 8pk SUTURE, 2-0 VICRYL [CT1] (RWN121O) SUTURE, 4-0 MONOCRYL [PS2] (Y496G) [facility] PAD, ELECTROSURGICAL 15:52 * [id number] *[id number] Used SURGICAL GROUNDING ORANGE LEAD, CAPSURE FIX NOVUS, 4076-45CM 16:52 VITATRON MED[employer] 45CM Used 45CM *[id number] LEAD, CAPSURE FIX NOVUS, 4076-52CM 16:38 VIT[employer]RON [employer] 52CM Used 52CM *[id number] 17:10 [employer] PACEMAKER, KATIE XT QAE-DDDR W1DR01 Used [id number] 15:52 [employer]Parts TAMMIE. / * Used *14916 Equipment Model, Serial, Lot Number and Expiration Data Description Model Number Serial Number Lot Number Expiration Date LEAD, CAPSURE FIX NOVUS, 45CM 4076-45CM [id number] 05-07-2020 LEAD, CAPSURE FIX NOVUS, 52CM 4076-52CM [id number] 05-27-2020 PACEMAKER, KATIE XT [id number] 11-24-2019 06/26/2018 6:08:32 PM Financial #: [id number] 3 of 9 Patient Name: Gregg Araujo Study #: [id number] Initial MD: Dandre Dior Date of : 1950 Study Date: 06/26/2018 Insurance Information Insurance Payor Private Health Insurance Third Libertarian Third Libertarian Number [facility] [id number] History: Allergies Allergy Reaction No Known Allergies History: Risk Factors Family History of Hypertension Premature CAD Yes Yes Cerebrovascular Diabetes Diabetes Therapy Disease Labs Hgb (g/dl) Hct (%) WBC (l/cumm) Platelets (thousands) 11.60-17.00 35.00-51.00 4.00-11.00 150.00-450.00 14.1 42.5 4.9 260 Glucose (mg/dl) BUN (mg/dl) Creatinine (mg/dl) BUN:Creatinine (1:x) 74.00-106.00 7.00-18.00 0.50-1.30 10.00-20.00 126 24 0.9 26.7 Na (meq/l) K (meq/l) 136.00-145.00 3.50-5.10 140 3.6 Troponin I (ng/ml) 0.02-0.05 0.02 Medication Medication Total Dose (Bolus/Oral) Medication Total Dosage/Unit 2% XYLOCAINE 50 mL Medications (Bolus/Oral) Medication Time Given Dosage/Unit Administered By Reason 2% XYLOCAINE 06/26/2018 4:13:24 PM 50 mL Dandre Dior 50 mL 2% XYLOCAINE / MARCAINE given in lab by Anesthesia, CONSTRUCTION JOB TITLES via Subcutaneous. Ordered by Krishna Dior 06/26/2018 6:08:32 PM Financial #: [id number] 4 of 9 Patient Name: Gregg Araujo Study #: [id number] Initial MD: Dandre Dior Date of : 1950 Study Date: 06/26/2018 Medication (Drip) Medication Time Given Dosage/Unit Concentration/Unit Diluent (ml) Solution ANCEF 06/26/2018 3:52:35 PM 2 g 2 g ANCEF given in lab by Anesthesia, CONSTRUCTION JOB TITLES via Peripheral IV. Ordered by Dandre Dior. Reason: As per physicians verbal order. VANCOMYCIN DRIP 06/26/2018 3:53:51 PM 1 g 1 g VANCOMYCIN DRIP given in lab by Anesthesia, CONSTRUCTION JOB TITLES via Peripheral IV. Ordered by Dandre Dior. Reaso n: As per physicians verbal order. Initial Case Assessment Cardiovascular HR NIBP 55 151/79 Edema Present Skin color Skin None Normal Warm Dry Circulatory - Right Pulses Dorsalis Pedis 1 Scale (0,1,2,3,4,d) Circulatory - Left Pulses Dorsalis Pedis 1 Scale (0,1,2,3,4,d) Circulatory - Lower Extremities Color Lower Right Color Lower Left Normal Normal Neurological State Oriented to time-place- Alert Moves all extremities person Respiration - General Respiration Rate SpO2 (%) (B/min) 16 96 06/26/2018 6:08:32 PM Financial #: [id number] 5 of 9 Patient Name: Gregg Araujo Study #: [id number] Initial MD: Dandre Dior Date of : 1950 Study Date: 06/26/2018 Final Case Assessment Cardiovascular HR NIBP 60 110/60 Edema Present Skin color Skin None Normal Warm Dry Circulatory - Right Pulses Dorsalis Pedis 1 Scale (0,1,2,3,4,d) Circulatory - Left Pulses Dorsalis Pedis 1 Scale (0,1,2,3,4,d) Circulatory - Lower Extremities Color Lower Right Color Lower Left Normal Normal Neurological State Drowsy Moves all extremities Respiration - General Respiration Rate SpO2 (%) O2 (lpm) (B/min) 20 99 3 Chronological Log Time Study Chronological Log First Sponge And Instrument Count Done by Lola Lewis RCIS. 0:00:00 Hypo's: hypo's, Sponges: sponges, Bovie/scratch: bovie/scratch Sutures: ~SUTURE~, Blades: ~BLADES~, Instruments: ~INSTRU~, Syveck Patches: ~SYVECK PATCH~ Veri fied by 15:28:09 Patient arrived via Bed. 15:28:10 Patient Name, D.O.B, / Armband Verified By R.N. 15:28:18 Consent signed by the physician and the patient and verified by the Hand Patcher staff. 15:28:21 Anesthesia at bedside. Assumes care of patient. 15:28:22 Patient has been NPO for More than 6Hrs. 15:28:23 Skin Breakdown- none per pt 15:28:23 Patient Warmer Placed on the Table. 15:28:24 Disposable Defibrillator Pads Placed On Patient. 06/26/2018 6:08:32 PM Financial #: [id number] Patient Name: Gregg Araujo Study #: [id number] Initial MD: Dandre Dior Date of : 1950 Study Date: 06/26/2018 15:28:25 Dior Prominences Protected 15:28:27 A # 20 IV was noted in the Forearm (right). Grade = 0 0.9% NaCl @ KVO 15:28:28 A # 20 IV was noted in the Antecubital (left). Grade = 0 0.9% NaCl @ KVO 15:28:29 History and physical on the chart or being dictated. Assessment: Initial Case, HR=55 BPM, YWMI=349/79 mmhg, Edema=None, Color=Normal, Skin = Warm, D ry Right Pulses: Orville Ped=1 Left Pulses: [place]ville Ped=1 15:38:41 Lower Right Extremities: Color=Normal Lower Left Extremities: Color=Normal Neurological: State=Alert, Ox3, GAYLE Respiration: Resp=16 B/min, SpO2=96 % 15:38:56 2% CHLORHEXIDINE GLUCONATE WASH AND NASAL SWIPE DONE PRIOR TO PROCEDURE. 15:39:09 Table restraints applied according to hospital policy 15:40:03 Reference ECG taken 15:44:36 Anesthesiologist present for LMA insertion. 15:48:50 Bovie ground pad applied to: right thigh 15:49:56 Bilateral Upper Chest Prepped Times Two. 2 g ANCEF given in lab by Anesthesia, CONSTRUCTION JOB TITLES via Peripheral IV. Ordered by Dandre Dior. Reason: A s per physicians 15:52:35 verbal order. 1 g VANCOMYCIN DRIP given in lab by Anesthesia, CONSTRUCTION JOB TITLES via Peripheral IV. Ordered by Dandre Dior. Reason: As per 15:53:51 physicians verbal order. First Sponge And Instrument Count Done by Lola Lewis RCIS. 15:54:12 Hypo's: 6, Sponges: 30, Bovie/scratch: 2 Sutures: 10, Blades: 1, Instruments: 26, Syveck Patches: 0 Verified by 16:01:11 A sterile drape was applied after a 5 minute drying time. 16:06:53 MD arrived. Time Out. Correct patient, procedure, procedure equipment, site and side verified with physicia n present. Time 16:12:12 concurred by MD, individual staff and CONSTRUCTION JOB TITLES. Time Out #2 - Consents verified, patient in correct position, all results are labled and displa yed, safety precautions 16:12:13 taken, antibiotics administered. Time out concurred by MD, individual staff and CONSTRUCTION JOB TITLES in procedu re 16:12:15 Case Start 16:13:24 50 mL 2% XYLOCAINE / MARCAINE given in lab by Anesthesia, CONSTRUCTION JOB TITLES via Subcutaneous. Ordered by Dandre Dior. 16:17:28 Surgical Incision Made. 16:26:33 A pocket was created at the L Upper Chest. A INTRODUCER SET, MICROPUNCTURE FR 5 was advanced into the Subclav. Vein (Lft using the Modifie d Seldinger 16:29:49 technique. A sheath was exchanged in the Subclav. Vein (Lft. This was necessary in order to accomodate a l arger catheter. 16:32:51 SHEATH PROVIDED BY HobzyTRONIC 7FRENCH A SAFE SHEATH, FR7, 13CM FR 7 was exchanged in the Subclav. Vein (Lft. This was necessary in or ruma to accomodate 16:36:38 a larger catheter. 16:38:28 A LEAD, CAPSURE FIX NOVUS, 52CM 52CM was inserted and positioned in the RV. 16:51:22 Lead placement verified under fluoroscopy A INTRODUCER SET, MICROPUNCTURE FR 5 was advanced into the Subclav. Vein (Lft using the Modifie d Seldinger 16:54:22 technique. 16:54:45 A SAFE SHEATH, FR7, 13CM FR 7 was advanced into the Subclav. Vein (Lft using the Modified S winniedinger technique. 06/26/2018 6:08:32 PM Financial #: [id number] 7 of 9 Patient Name: Gregg Araujo Study #: [id number] Initial MD: Dandre Dior Date of : 1950 Study Date: 06/26/2018 16:59:00 A LEAD, CAPSURE FIX NOVUS, 45CM 45CM was inserted and positioned in the RA. 17:05:08 Lead placement verified under fluoroscopy 17:05:55 The Atrial lead impedance and threshold is being tested. 17:05:56 The Atrial lead was sutured to the fascia. 17:09:14 Pocket flushed with antibiotic solution 17:09:16 A PACEMAKER, KATIE XT DR CARLOS-DDDR was connected and placed in the pocket. 17:14:29 The pocket is being closed. Second Sponge And Instrument Count Done by Lola Lewis RCIS. 17:16:35 Hypo's: 6, Sponges: 30, Bovie/scratch: 2 Sutures: 10, Blades: 1, Instruments: ~INSTRU~, Syveck Patches: 0 Verified by 17:19:20 PACU called. Spoke to Bishop 17:20:09 Implant Procedure was performed. 17:20:15 A PPM Implant . (Dual) 17:20:23 Bedside Report will be given. 17:39:46 The pocket was closed. 17:40:01 Case End (Physician broke scrub) 17:41:38 Implantable Device card placed in patient's chart. Final Sponge And Instrument Count Done by Lola Lewis RCIS. 17:42:11 Hypo's: 6, Sponges: 30, Bovie/scratch: 2 Sutures: 10, Blades: 1, Instruments: 26, Syveck Patches: 0 Verified by 17:42:33 No case complications noted. 17:42:42 Cine recording checked. 17:47:49 Steri-strips and a sterile dressing applied to site. 17:49:29 The LMA was removed by anesthesia and patient placed on supplemental oxygen by [facility]. Assessment: Final Case, HR=60 BPM, ZOBQ=382/60 mmhg, Edema=None, Color=Normal, Skin = Warm, Dr marilyn Right Pulses: Orville Ped=1 Left Pulses: Orville Ped=1 17:52:14 Lower Right Extremities: Color=Normal Lower Left Extremities: Color=Normal Neurological: State=Drowsy, GAYLE Respiration: Resp=20 B/min, SpO2=99 %, O2=3 lpm 17:53:31 Patient moved to stretcher 17:53:55 Defibrillator and ground pads removed. Skin intact. 18:07:54 Transported patient via bed to PACU with CONSTRUCTION JOB TITLES and tech accompanying him in stable conditio n on o2 @ 3l/min NC End Study - Contrast Media Used In Study Contrast Total Opened (mL) Total Used (mL) Total Wasted (mL) Unspecified 0 0 0 06/26/2018 6:08:32 PM Financial #: [id number] Patient Name: Gregg Araujo Study #: [id number] Initial MD: Dandre Dior Date of : 1950 Study Date: 06/26/2018 End Study - Maximum Contrast Load Max Contrast Load (mL) 514.9 End Study - Radiation Exposure Fluoro Time (minutes) 9.7 End Study - Patient Disposition Complications Transferred To No Telemetry Bed 06/26/2018 6:08:32 PM Financial #: [id number]
--- NOTE | 2018-06-26 18:40 | XR ---
EXAM DATE: 06/26/2018 6:33 PM EDT AGE/SEX: 68 years / Male INDICATIONS: Pneumothorax, post pacemaker placement. CLINICAL DATA: This is the patient's initial encounter. Patient reports that signs and symptoms have been present for 1 day and indicates a pain score of Nonresponsive. MEDICAL/SURGICAL HISTORY: None. None. COMPARISON: HPO, CHEST SINGLE AP, 04/04/2016. . FINDINGS: A single AP view of the chest demonstrates the lungs to be symmetrically aerated without evidence of mass, infiltrate or effusion. Bronchopulmonary crowding due to the expiratory technique. No pneumotho rax post left subclavian pacer placement. Stable widening and degenerative changes of the right AC collins int. Degenerative spurring of the dorsal spine. CONCLUSION: 1. No pneumothorax post pacer placement. 2. Lungs are grossly clear accounting for the expiratory technique. 3. Stable widening of the right AC joint with associated degenerative changes. Electronically signed by: Adama Gonzalez MD 06/26/2018 6:38 PM EDT
[2018-06-26] MEDS ORDERED: Acetaminophen 325 MG Tablet PO PRN (19:00)
[2018-06-26] MEDS ORDERED: Sodium Chloride 0.45 % Inj 1,000 ML IV.CONT SCH (19:00)
[2018-06-27] MEDS ORDERED: Vancomycin Inj 1,250 MG in Sodium Chlor 0.9% Inj 250 ML IV.SIG SCH (05:00)
[2018-06-27] MEDS: Levothyroxine 75 MCG Tablet PO SCH (05:14)
--- NOTE | 2018-06-27 07:38 | P.PNCA ---
<Hasmukh Tovar - Last Filed: 06/27/18 07:54> Subjective Interval history: s/p PPM yesterday. Doing well with no complaints. No chest pain or shortness of breath. Physical Exam Vital signs: Vital Signs 06/26/18 08:00 06/26/18 09:00 06/26/18 10:00 Temperature 97.4 F L Pulse Rate 46 L 50 L 46 L Respiratory Rate 15 Blood Pressure 130/70 Pulse Oximetry 95 06/26/18 11:00 06/26/18 11:14 06/26/18 12:00 Temperature 97.7 F Pulse Rate 49 L 47 L 62 Respiratory Rate 16 Blood Pressure 128/69 Pulse Oximetry 97 06/26/18 13:00 06/26/18 14:00 06/26/18 15:00 Temperature Pulse Rate 41 L 45 L 49 L Respiratory Rate Blood Pressure Pulse Oximetry 06/26/18 15:14 06/26/18 18:00 06/26/18 18:16 Temperature 97.7 F 97.6 F Pulse Rate 47 L 60 63 Respiratory Rate 16 16 Blood Pressure 164/75 H 128/72 Pulse Oximetry 96 06/26/18 18:30 06/26/18 18:40 06/26/18 19:00 Temperature 97.6 F Pulse Rate 65 65 60 Respiratory Rate 16 16 Blood Pressure 126/72 126/72 Pulse Oximetry 97 97 06/26/18 19:48 06/26/18 20:00 06/26/18 21:00 Temperature 97.8 F Pulse Rate 70 74 66 Respiratory Rate 16 Blood Pressure 114/65 Pulse Oximetry 95 06/26/18 22:00 06/26/18 23:00 06/27/18 00:00 Temperature 98.2 F Pulse Rate 72 71 60 Respiratory Rate 14 Blood Pressure 105/63 Pulse Oximetry 95 06/27/18 01:00 06/27/18 02:00 06/27/18 03:00 Temperature 98.1 F Pulse Rate 62 58 L 59 L Respiratory Rate 16 Blood Pressure 111/72 Pulse Oximetry 96 06/27/18 04:00 06/27/18 05:00 06/27/18 06:00 Temperature Pulse Rate 58 L 59 L 64 Respiratory Rate Blood Pressure Pulse Oximetry Intake & Output 06/26/18 06/27/18 06/27/18 18:59 06:59 18:59 Intake Total 350 / 350 1600 / 1600 Output Total 1675 / 1675 Balance 350 / 350 -75 / -75 Weight 202 lb 6.15 oz Intake: IV 350 / 350 1000 / 1000 1/2 Normal Saline Inj 1,000 ML 1000 / 1000 @ 150 mls/hr IV.CONT .Q6H40M [facility] Rx#:[id number] Vancomycin Inj 1,000 MG In NS 250 / 250 Inj 250 ML @ 250 mls/hr IV.SIG PATTERN SETTER [facility] Rx#:[id number] Ancef 2 GM Premix Inj 2 gm In 100 / 100 100 ml @ 200 mls/hr IV.SIG PATTERN SETTER [facility] Rx#:[id number] Oral 600 / 600 Output: Urine 1675 / 1675 Other: # Voids 3 Date of Last Bowel Movement 06/25/18 Narrative: GENERAL: Well-developed well-nourished. In no acute distress. NECK: No carotid bruits. No JVD. CARDIOVASCULAR: Regular rate and rhythm. No murmur appreciated. Clean pressure dressing in place on left chest wall. RESPIRATORY: No accessory muscle use. Clear to auscultation. Breath sounds equal bilaterally. MUSCULOSKELETAL: No clubbing or cyanosis. No edema. Left arm in a sling. NEUROLOGICAL: Awake and alert. Normal speech. Assessment and Plan - Plan Assessment: SSS with symptomatic sinus bradycardia s/p dual-chamber pacemaker placed 06/26 - chest x-ray with no pneumothorax HTN NIDDM Recommendation: Keep pressure dressing in place Nonweightbearing left upper extremity 6 weeks No lifting left upper extremity greater than 90 Outpatient follow-up in 10 days Discussed Condition With: Patient, Dr. Dior <Dandre Dior - Last Filed: 06/27/18 13:51> Physical Exam Vital signs: Vital Signs 06/26/18 14:00 06/26/18 15:00 06/26/18 15:14 Temperature 97.7 F Pulse Rate 45 L 49 L 47 L Respiratory Rate 16 Blood Pressure 164/75 H Pulse Oximetry 96 06/26/18 18:00 06/26/18 18:16 06/26/18 18:30 Temperature 97.6 F Pulse Rate 60 63 65 Respiratory Rate 16 16 Blood Pressure 128/72 126/72 Pulse Oximetry 97 06/26/18 18:40 06/26/18 19:00 06/26/18 19:48 Temperature 97.6 F 97.8 F Pulse Rate 65 60 70 Respiratory Rate 16 16 Blood Pressure 126/72 114/65 Pulse Oximetry 97 95 06/26/18 20:00 06/26/18 21:00 06/26/18 22:00 Temperature Pulse Rate 74 66 72 Respiratory Rate Blood Pressure Pulse Oximetry 06/26/18 23:00 06/27/18 00:00 06/27/18 01:00 Temperature 98.2 F Pulse Rate 71 60 62 Respiratory Rate 14 Blood Pressure 105/63 Pulse Oximetry 95 06/27/18 02:00 06/27/18 03:00 06/27/18 04:00 Temperature 98.1 F Pulse Rate 58 L 59 L 58 L Respiratory Rate 16 Blood Pressure 111/72 Pulse Oximetry 96 06/27/18 05:00 06/27/18 06:00 06/27/18 07:00 Temperature 97.8 F Pulse Rate 59 L 64 60 Respiratory Rate 17 Blood Pressure 118/69 Pulse Oximetry 98 06/27/18 08:00 06/27/18 09:00 06/27/18 10:00 Temperature Pulse Rate 60 68 60 Respiratory Rate Blood Pressure Pulse Oximetry 06/27/18 11:00 06/27/18 12:00 Temperature 97.8 F Pulse Rate 68 58 L Respiratory Rate 17 Blood Pressure 128/77 Pulse Oximetry 98 Intake & Output 06/26/18 06/27/18 06/27/18 18:59 06:59 18:59 Intake Total 350 / 350 1862.5 / 1862.5 Output Total 1675 / 1675 Balance 350 / 350 187.5 / 187.5 Weight 91.8 kg Intake: IV 350 / 350 1262.5 / 1262.5 1/2 Normal Saline Inj 1,000 ML 1000 / 1000 @ 150 mls/hr IV.CONT .Q6H40M [facility] Rx#:[id number] Vancomycin Inj 1,000 MG In NS 250 / 250 Inj 250 ML @ 250 mls/hr IV.SIG PATTERN SETTER [facility] Rx#:[id number] Vancomycin Inj 1,250 MG In NS 262.5 / 262.5 Inj 250 ML @ 250 mls/hr IV.SIG Q12H [facility] Rx#:[id number] Ancef 2 GM Premix Inj 2 gm In 100 / 100 100 ml @ 200 mls/hr IV.SIG PATTERN SETTER [facility] Rx#:[id number] Oral 600 / 600 Output: Urine 1675 / 1675 Other: # Voids 3 Date of Last Bowel Movement 06/25/18 06/25/18 Assessment and Plan - Plan patient seen and examined. agree with above. I removed the pressure dressing today. f/u as scheduled at our office. d/c today.
[2018-06-27] MEDS: amLODIPine 10 MG Tablet PO SCH (09:12)
--- NOTE | 2018-06-27 09:13 | P.DS ---
<Susanne Penn W - Last Filed: 06/27/18 09:03> Date of admission: 06/24/18 12:00 Primary care physician: Rocky Carpenter Attending physician on discharge: Randy Valero Anticipated date of discharge: 06/27/18 Brief History from admission: 68-year-old white male with a history of hypertension on amlodipine diabetes on metformin who came to the emergency room today with complaints of dizziness and on a monitor was found to have a low pulse rate and was concerned it was less than 50. Patient states that approximately 1 year ago while at work had a syncopal episode off a ladder, and was admitted to the hospital had full workup including monitor strips and had a event monitor which was unremarkable. Patient also states that last he had dizzy spells associated with some vertigo lasted about a half a day and dissipated on its own. Today patient woke up with dizziness lightheadedness and does have a blood pressure monitor blood pressure monitor read 40 to his baseline heart rate is approximately 55 according to the patient 42 he became concerned and came to [facility] emergency room. In the emergency room his heart rate was in the 50 range will be admitted now for further evaluation telemetry monitoring and consult cardiology patient denies shortness of breath chest pain nausea vomiting when he had the dizzy spell he was off balance balance is now normal. DS: Diagnosis - Discharge Diagnosis (1) Bradycardia Status: Acute (2) Dizziness Status: Acute (3) Diabetes Status: Acute (4) Hypertension Status: Acute DS: Summary Hospital Course: Dizziness - likely secondary to pt's bradycardia - observe - PT Bradycardia Bradycardia based on rhythm strips - Pt s/p PPM 06/26/[address] Doir - Echocardiogram (06/25) EF 60-65% Diabetes - Type 2 diabetes mellitus without complications - Patient may resume metformin 48 hours after procedure Hypertension - continue patient's home norvas - Time Spent with Patient Total time spent providing and/or coordinating discharge services: Greater than 30 minutes - Quality: VTE Deep Vein Thrombosis/Pulmonary Embolism Present on Admission: No Exam Vital signs: Vital Signs 06/26/18 10:00 06/26/18 11:00 06/26/18 11:14 Temperature 97.7 F Pulse Rate 46 L 49 L 47 L Respiratory Rate 16 Blood Pressure 128/69 Pulse Oximetry 97 06/26/18 12:00 06/26/18 13:00 06/26/18 14:00 Temperature Pulse Rate 62 41 L 45 L Respiratory Rate Blood Pressure Pulse Oximetry 06/26/18 15:00 06/26/18 15:14 06/26/18 18:00 Temperature 97.7 F Pulse Rate 49 L 47 L 60 Respiratory Rate 16 Blood Pressure 164/75 H Pulse Oximetry 96 06/26/18 18:16 06/26/18 18:30 06/26/18 18:40 Temperature 97.6 F 97.6 F Pulse Rate 63 65 65 Respiratory Rate 16 16 16 Blood Pressure 128/72 126/72 126/72 Pulse Oximetry 97 97 06/26/18 19:00 06/26/18 19:48 06/26/18 20:00 Temperature 97.8 F Pulse Rate 60 70 74 Respiratory Rate 16 Blood Pressure 114/65 Pulse Oximetry 95 06/26/18 21:00 06/26/18 22:00 06/26/18 23:00 Temperature Pulse Rate 66 72 71 Respiratory Rate Blood Pressure Pulse Oximetry 06/27/18 00:00 06/27/18 01:00 06/27/18 02:00 Temperature 98.2 F Pulse Rate 60 62 58 L Respiratory Rate 14 Blood Pressure 105/63 Pulse Oximetry 95 06/27/18 03:00 06/27/18 04:00 06/27/18 05:00 Temperature 98.1 F Pulse Rate 59 L 58 L 59 L Respiratory Rate 16 Blood Pressure 111/72 Pulse Oximetry 96 06/27/18 06:00 06/27/18 07:00 06/27/18 08:00 Temperature 97.8 F Pulse Rate 64 60 60 Respiratory Rate 17 Blood Pressure 118/69 Pulse Oximetry 98 Intake & Output 06/26/18 06/27/18 06/27/18 18:59 06:59 18:59 Intake Total 350 / 350 1862.5 / 1862.5 Output Total 1675 / 1675 Balance 350 / 350 187.5 / 187.5 Weight 91.8 kg Intake: IV 350 / 350 1262.5 / 1262.5 1/2 Normal Saline Inj 1,000 ML 1000 / 1000 @ 150 mls/hr IV.CONT .Q6H40M [facility] Rx#:[id number] Vancomycin Inj 1,000 MG In NS 250 / 250 Inj 250 ML @ 250 mls/hr IV.SIG FOOT ROENTGENOLOGIST [facility] Rx#:[id number] Vancomycin Inj 1,250 MG In NS 262.5 / 262.5 Inj 250 ML @ 250 mls/hr IV.SIG Q12H [facility] Rx#:[id number] Ancef 2 GM Premix Inj 2 gm In 100 / 100 100 ml @ 200 mls/hr IV.SIG FOOT ROENTGENOLOGIST [facility] Rx#:[id number] Oral 600 / 600 Output: Urine 1675 / 1675 Other: # Voids 3 Date of Last Bowel Movement 06/25/18 06/25/18 Narrative: GENERAL: Well-developed well-nourished. In no acute distress. NECK: No carotid bruits. No JVD. CARDIOVASCULAR: regular rate. dressing to left chest CDI RESPIRATORY: No accessory muscle use. Clear to auscultation. Breath sounds equal bilaterally. MUSCULOSKELETAL: No clubbing or cyanosis. No edema. NEUROLOGICAL: Awake and alert. Normal speech. Results Procedures completed during hospitalization: PPM 06/26/[address] Dior - Impressions ITS Impressions Chest X-Ray 06/26/18 00:00 CONCLUSION: 1. No pneumothorax post pacer placement. 2. Lungs are grossly clear accounting for the expiratory technique. 3. Stable widening of the right AC joint with associated degenerative changes. <Randy Valero - Last Filed: 07/01/18 12:31> Date of admission: 06/24/18 12:00 Primary care physician: Rocky Carpenter DS: Diagnosis - Discharge Diagnosis (1) Bradycardia Status: Acute (2) Diabetes Status: Acute (3) Hypertension Status: Acute DS: Summary Hospital Course: Patient examined. Assessment and plan formulated with Susanne Penn PA-C. I agree with the above. - Time Spent with Patient Total time spent providing and/or coordinating discharge services: Results - Impressions ITS Impressions Chest X-Ray 06/26/18 00:00 CONCLUSION: 1. No pneumothorax post pacer placement. 2. Lungs are grossly clear accounting for the expiratory technique. 3. Stable widening of the right AC joint with associated degenerative changes. Discharge Plan - Discharge Order Discharge Orders: Discharge Order (Routine); Ordered 06/27/18 Ordered By: Susanne Penn - Discharge Details Anticipated Discharge Date: 06/27/18 - Physicians Team Primary Care Provider: Rocky Carpenter Attending Provider: Randy Valero Other Providers: Steve Cesar MD ; Dandre Dior,
--- NOTE | 2018-06-27 13:30 | P.DCO ---
- Diagnosis (4) Diabetes - Home Health Nursing Order: Medical education, Signs/symptoms of disease process, Medication education-adverse effect, Wound care and dressing changes, Nursing assessment with vital signs - Certification I have seen patient Gregg Araujo on 06/27/18. My clinical findings support the need for the requested home health care services because: Deconditioned with increased weakness, Medication compliance is questionable I certify that my clinical findings support that this patient is homebound because: Impaired cognitive ability/safety, Unsafe to leave home unassisted, Unable to use public transportation (4) Diabetes Qualifiers: Diabetes mellitus type: type 2
[2018-06-27] MEDS: Enoxaparin Inj 40 MG/0.4 ML Syringe SQ SCH (13:58)
--- NOTE | 2018-06-27 14:20 | MP ---
cc: Dandre Dior DO DATE OF OPERATION: 06/26/2018 SURGEON: Dandre Dior DO. PROCEDURE: Dual chamber permanent pacemaker implantation, Medtronic [place] XTDR MRI compatible. PREOPERATIVE DIAGNOSIS: Symptomatic bradycardia. POSTOPERATIVE DIAGNOSES: Successful implantation of a dual chamber permanent pacemaker via the left upper chest wall with subcutaneous pocket generator placement. ANESTHESIA: General anesthesia and local combination approximately 20 mL of 1% Xylocaine and 0.25% Marcaine in a 50:50 mixture were used for local anesthetic. PROCEDURES PERFORMED: 1. Implantation of pacemaker generator Medtronic [place] XT DR MRI, model #W1DR01, serial #[id number]. 2. Implantation of right atrial pacing lead Medtronic, model #209464, serial #[id number] in the right atrial appendage. 3. Implantation of right ventricular pacing lead Medtronic, model #496142, serial #[id number] in the RV apex. 4. Formation of pulse generator pocket in the subcutaneous tissue of the left upper chest wall. 5. Left subclavian venogram. ESTIMATED BLOOD LOSS: Less than 20 mL. DYE LOAD: 20 mL. ANTIBIOTICS: 1 gram of vancomycin intravenously and vancomycin in an irrigation solution. INFORMED CONSENT: Prior to the procedure, the risks, benefits, and alternatives of the procedure were discussed with the patient and family in detail, who agrees to proceed with the procedure. Risks including, but not limited to, bleeding, hematoma, infection, pneumothorax, lead dislodgement, arrhythmia, perforation of cardiac chamber, and were discussed with the patient, who agrees to proceed with the procedure. DESCRIPTION OF PROCEDURE: After informed consent was obtained, the patient was brought to the [place] [facility] in a postabsorptive state. The patient's left chest wall was prepped and draped in the usual sterile fashion. A timeout was taken in order to verify the patient, procedure, and preprocedure labs. Using subcutaneous tissue, 2 cm inferior to the left clavicle was anesthetized with lidocaine/Marcaine mixture; and, using a 10 blade, a small horizontal incision was made, followed by combination of sharp and blunt dissection and electrocautery for pocket formation. Using a micropuncture finder needle under fluoroscopic guidance, the left subclavian vein was cannulated following a left subclavian venogram performed and a J-tipped guidewire was advanced into the venous system, which was upsized and the venous system was verified with a wire, able to go into the inferior vena cava under fluoroscopic guidance and then the wire was pulled back. A second wire was placed into the venous system using the same technique. An appropriate size SafeSheath introducer was then used to place the right ventricular lead at the level of the right atrium. Using a combination of straight and curved stylets, the right ventricular lead was placed at the level of the RV apex. The lead was actively fixated, tested, found to be satisfactory, and sutured to the pectoralis muscle to prevent migration with nonabsorbable Ethibond 2-0 suture x2 sutures over the suture sleeve. The appropriate size SafeSheath introducer was then used to place the right atrial lead to the level of the right atrium and the introducer was removed. A J-tip stylet was placed to appropriately position the right atrial lead into the appendage. The lead was actively fixated, tested, found to be satisfactory, and sutured into the pectoralis muscle to prevent migration with nonabsorbable Ethibond 2-0 suture x2 sutures over the suture sleeve. The pulse generator was then connected to the leads. The pocket was then irrigated with copious amounts of antibiotic-containing saline solution. The device was placed into the pocket with excess leads being placed posterior to the device in the pocket. The device was sutured to the pectoralis muscle through the suture hole in the header of the device to prevent migration with nonabsorbable Ethibond 2-0 suture. The pocket was then closed with 3 interrupted layers of 3-0 Vicryl through the subcutaneous tissue, followed by the skin being closed with 4-0 Monocryl in a subcuticular fashion with the knots being tied on either end external to the incision. Steri-Strips, Telfa pad, and Tegaderm were subsequently applied along with a pressure dressing. The patient tolerated the procedure well with no apparent complications. The patient will be transferred to the PACU for post-procedural monitoring prior to being transferred to telemetry for continued monitoring per protocol. MEASURED DATA: The right atrial lead measures P-wave 4.2 millivolts, 1.2 volt threshold at 0.4 milliseconds pulse width, 561 ohms impedance. The right ventricular lead measures 10 millivolt R-wave, 0.8 volts threshold at 0.4 milliseconds pulse width, 653 ohms impedance. The device was programmed DDDR with LRL 60 BPM and upper tracking limit 130 BPM. DO Leslye Olmos , 01:30 PM , 01:43 PM
[2018-07-09] MEDS ORDERED: Atropine Inj 1 MG/10 ML Syringe ONE (10:09)
[2018-07-09] MEDS ORDERED: Lidocaine 2% 100 MG/5 ML Syringe ONE (10:09)
== END 2018-06-27 16:06 | disposition home or self-care (01) ==
LOC: PHED 08:01 → HCIS 08:01 → PHEDA 08:01 → PH3 13:10 → HCIS 06-25 20:43
PROVIDERS: ADMIT Hospitalist; ATTEND Hospitalist